=== PATIENT | male | born 1980 | race African-American/Black ===

== ENCOUNTER 2021-05-16 03:11 | Inpatient (IN) | payer MEDICAID ==
[~2021-05-16] VITALS: Ht 190.5 cm; Wt 80.7 kg
[2021-05-16] MEDS ORDERED: ONDANSETRON HCL/PF 4 MG/2 ML VIAL ONE (03:27)
[2021-05-16] MEDS ORDERED: IV NS 0.9% 1,000 ML BAG IV ONE (03:30)
[2021-05-16] MEDS ORDERED: ONDANSETRON HCL/PF 4 MG/2 ML VIAL IVP ONE (03:30)
[2021-05-16 03:39] LABS: BASOPHILS # (AUTO) 0.1 K/uL (0.0-0.2); BASOPHILS % (AUTO) 0.8 % (0.0-2.0); EOSINOPHILS % (AUTO) 0.3 % (0.0-6.0); HEMATOCRIT 35 % (39-51); HEMOGLOBIN 11.4 g/dL (13.5-17.5); LYMPHOCYTES # (AUTO) 1.6 K/uL (0.8-4.8); LYMPHOCYTES % (AUTO) 10.1 % (20.0-44.0); MEAN CORPUSCULAR HGB CONC 33 g/dl (31.0-36.0); MEAN CORPUSCULAR VOLUME 88 fL (80-96); MONOCYTES # (AUTO) 0.9 K/uL (0.1-1.30); MONOCYTES % (AUTO) 5.6 % (2.0-12.0); NEUTROPHILS # (AUTO) 13.5 K/uL (1.8-8.9); NEUTROPHILS % (AUTO) 83.2 % (43.0-81.0); PLATELET COUNT (AUTO) 756 K/uL (150-450); RED BLOOD CELL COUNT(AUTO) 3.94 MIL/uL (4.5-6.0); WHITE BLOOD COUNT (AUTO) 16.2 K/uL (4.3-11.0)
[2021-05-16 03:43] LABS: BILIRUBIN,URINE Negative (NEGATIVE); COLOR,URINE YELLOW (YELLOW); LEUKOCYTE ESTERASE ,URINE Negative (NEGATIVE); NITRITE, URINE Negative (NEGATIVE); PH,URINE 5.5 (5.0-8.0); PROTEIN,URINE 30 mg/dl (NEGATIVE); UGLUCOSE Negative (NEGATIVE)
[2021-05-16] MEDS ORDERED: MAG HYDROX/AL HYDROX/SIMETH 30 ML UDC ONE (03:43)
[2021-05-16] MEDS ORDERED: LIDOCAINE VISCOUS 2% UD 15 ML UDC ONE (03:43)
[2021-05-16 03:52] LABS: CALCIUM, SERUM 8.5 mg/dL (8.5-10.1); CARBON DIOXIDE 25 mmol/L (21-32); CHLORIDE 100 mmol/L (98-107); CREATININE 0.9 mg/dL (0.6-1.3); GLUCOSE 109 mg/dL (74-106); POTASSIUM 3.4 mmol/L (3.5-5.1); SODIUM SERUM 135 mmol/L (136-145); UREA NITROGEN, BLOOD 14 mg/dL (7-18)
[2021-05-16 03:58] LABS: ALANINE AMINOTRANSFERASE 134 U/L (12-78); ALBUMIN 2.5 g/dL (3.4-5.0); ALKALINE PHOSPHATASE 84 U/L (46-116); ASPARTATE AMINOTRANSFERASE 81 U/L (15-37); BILIRUBIN,DIRECT 0.1 mg/dL (0.0-0.2); BILIRUBIN,TOTAL 0.3 mg/dL (0.2-1.0); LIPASE 75 U/L (73-393); TOTAL PROTEIN, SERUM 7.4 g/dL (6.4-8.2)
[2021-05-16] MEDS ORDERED: LIDOCAINE VISCOUS 2% UD 15 ML UDC MM ONE (04:00)
[2021-05-16] MEDS ORDERED: MAG HYDROX/AL HYDROX/SIMETH 30 ML UDC PO ONE (04:00)
--- NOTE | 2021-05-16 04:06 | NUR ---
COVID SWAB COLLECTED AND SENT TO LAB
[2021-05-16] MEDS ORDERED: CT SWABBABLE VALVE TRANS SET 1 EA INFUS.SET MC ONE (04:29)
[2021-05-16] MEDS ORDERED: IV NS 0.9% 250 ML IV ONE (04:29)
[2021-05-16] MEDS ORDERED: IOHEXOL-350 100 ML VIAL IV ONE (04:29)
[2021-05-16] MEDS ORDERED: D5W IV SCH ×3 (04:30→13:00)
[2021-05-16] MEDS ORDERED: AZITHROMYCIN 500 MG in IV D5W 250 ML IV ONE (04:30)
[2021-05-16] MEDS ORDERED: ACETYLCYSTEINE IV SCH ×3 (04:30→13:00)
[2021-05-16] MEDS ORDERED: CEFTRIAXONE 1GM BAG (ER ONLY) 1 GM/50 ML PIGGYBACK IV ONE (04:30)
[2021-05-16] MEDS ORDERED: CEFTRIAXONE 1GM BAG (ER ONLY) 50 ML IV ONE (04:43)
[2021-05-16] MEDS ORDERED: AZITHROMYCIN 500 MG VIAL ONE (04:43)
--- NOTE | 2021-05-16 05:32 | NUR ---
CALLED BALJINDER FOR CT READ
--- NOTE | 2021-05-16 06:00 | NUR ---
CALLED HOUSE [facility]P FOR TELE BED
--- NOTE | 2021-05-16 06:16 | NUR ---
DR YOUNGER ON THE PHONE W/ ALICIA URBINA NP
--- NOTE | 2021-05-16 06:25 | NUR ---
TELE BED: 119-
[2021-05-16] MEDS ORDERED: ZOLPIDEM TARTRATE 5 MG TABLET PO PRN (07:00)
[2021-05-16] MEDS ORDERED: ONDANSETRON HCL/PF 4 MG/2 ML VIAL IVP PRN (07:00)
[2021-05-16] MEDS ORDERED: POTASSIUM CHLORIDE 20 MEQ TAB.PRT.SR PO ONE ×2 (07:00→08:13)
[2021-05-16] MEDS: ENOXAPARIN SODIUM 40 MG/0.4 ML DISP.SYRIN SQ SCH (07:00)
[2021-05-16] MEDS ORDERED: ACETAMINOPHEN 325 MG TABLET PO PRN (07:00)
[2021-05-16] MEDS ORDERED: MAG HYDROX/AL HYDROX/SIMETH 30 ML UDC PO PRN (07:00)
[2021-05-16] MEDS ORDERED: MORPHINE SULFATE INJ 2 MG/ML DISP.SYRIN IV PRN (07:00)
--- NOTE | 2021-05-16 07:12 | NUR ---
CALLED BALJINDER FOR CT READ
--- NOTE | 2021-05-16 07:46 | NUR ---
REPORT GIVEN TO NURSE DANY FROM TELE/HAZEL
[2021-05-16] MEDS ORDERED: PANTOPRAZOLE 40 MG TABLET.DR PO ONE (08:13)
[2021-05-16] MEDS ORDERED: ENOXAPARIN SODIUM 40 MG/0.4 ML DISP.SYRIN SQ ONE (08:13)
[2021-05-16] MEDS: PANTOPRAZOLE 40 MG TABLET.DR PO SCH (08:18)
[2021-05-16 08:31] LABS: BASOPHILS # (AUTO) 0.2 K/uL (0.0-0.2); BASOPHILS % (AUTO) 1.3 % (0.0-2.0); EOSINOPHILS % (AUTO) 0.3 % (0.0-6.0); HEMATOCRIT 36 % (39-51); HEMOGLOBIN 11.7 g/dL (13.5-17.5); LYMPHOCYTES # (AUTO) 1.3 K/uL (0.8-4.8); LYMPHOCYTES % (AUTO) 7.8 % (20.0-44.0); MEAN CORPUSCULAR HGB CONC 33 g/dl (31.0-36.0); MEAN CORPUSCULAR VOLUME 88 fL (80-96); MONOCYTES # (AUTO) 0.7 K/uL (0.1-1.30); MONOCYTES % (AUTO) 4.2 % (2.0-12.0); NEUTROPHILS # (AUTO) 14.1 K/uL (1.8-8.9); NEUTROPHILS % (AUTO) 86.4 % (43.0-81.0); PLATELET COUNT (AUTO) 739 K/uL (150-450); RED BLOOD CELL COUNT(AUTO) 4.08 MIL/uL (4.5-6.0); WHITE BLOOD COUNT (AUTO) 16.4 K/uL (4.3-11.0)
[2021-05-16 08:42] LABS: CALCIUM, SERUM 8.1 mg/dL (8.5-10.1); CREATININE 0.8 mg/dL (0.6-1.3); MAGNESIUM 2.1 mg/dL (1.8-2.4); POTASSIUM 3.5 mmol/L (3.5-5.1)
--- NOTE | 2021-05-16 08:50 | NUR ---
RN NOTES RECEIVED PT IN BED, STABLE ON ROOM AIR. A/O X3-4. PT NOT ANSWERING ADMISSION QUESTIONS. IRRITATED. AMBULATORY WITH STANDBY ASSIST. BELONGINGS CHECKED AND SIGNED. IV ACCESS ON RAC #18 INTACT, PATENT AND FLUSHED. PLACED IN BED. SAFETY MEASURES IN PLACE. BED LOCKED AND IN LOWEST POSITION WITH SIDE RAILS UP X2.
[2021-05-16 09:17] LABS: C-REACTIVE PROTEIN 3.9 mg/dL (0.0-0.9)
[2021-05-16 12:00] VITALS: BP 152/65
[2021-05-16 16:00] VITALS: BP 110/73
--- NOTE | 2021-05-16 19:29 | NUR ---
RN CLOSING NOTES NO SIGNIFICANT CHANGES THROUGHOUT THE SHIFT. ON 2L O2 VIA NC. NO SOB. DENIES PAIN. ALL DUE MEDS GIVEN. NEEDS ATTENDED. SAFETY MEASURES IN PLACE. WILL ENDORSE TO NIGHT RN FOR RAMEZ.
[2021-05-16 20:00] VITALS: BP 116/80
--- NOTE | 2021-05-16 20:15 | NUR ---
RN OPENING NOTES: RECEIVED PATIENT SLEEP IN BED COMFORTABLY, BED IN LOW POSITION, CALL LIGHTS WITHIN REACH, NO COMPLAIN OF PAIN AND DISCOMFORT AT THIS TIME, ON NC 22LPM NO SOB OR ANY RESP DISTRESS OBSERVED, PATIENT IS A/OX3 ABLE TO EXPRESS NEEDS, ON TELE MONITORING SR-97, IV LINE AT RT AC WITH ONGOING D5 1L WITH ACETYLCYSTEINE INFUSING WELL, PATIENT KEPT CLEAN AND DRY, ALL NEEDS MET, WILL CONTINUE TO MONITOR.
[2021-05-17] VITALS: BP 131/68
[2021-05-17 04:00] VITALS: BP 104/70
--- NOTE | 2021-05-17 06:59 | NUR ---
RN NOTES PATIENT REFUSED BLOOD DRAWN OFFERED 2X EXPLAIN THE IMPORTANCE OF PT INR BUT PATIENT STRONGLY REFUSED AND INSTEAD PREPARED AND 1 1/2 FOR THE LAB STAFF TO RETURN ENDORSE TO INCOMING NURSE.
[2021-05-17] MEDS: CEFTRIAXONE 1 G in IV D5W 50 ML IV SCH ×2 (07:00→12:00)
[2021-05-17] MEDS: AZITHROMYCIN 500 MG in IV D5W 250 ML IV SCH ×2 (07:00→12:27)
[2021-05-17] MEDS: ENOXAPARIN SODIUM 40 MG/0.4 ML DISP.SYRIN SQ SCH (07:17)
[2021-05-17] MEDS: PANTOPRAZOLE 40 MG TABLET.DR PO SCH (07:30)
--- NOTE | 2021-05-17 07:37 | NUR ---
RN CLOSING NOTES: PATIENT WAS AWAKE IN BED, ALERT AND ORIENTED X4 NO COMPLAIN OF PAIN AND DISCOMFORT AT THIS TIME, BED IN LOW POSITION, CALL LIGHTS WITHIN REACH, ON TELE MONITORING IV LINE AT RAC #18 WITH ONGOING MUCOMYST IV IN D5W AT 65.25ML/HR INFUSING WELL, PATIENT ON BR WITH STAND BY ASSIST, ON 02 INHALATION AT 2LPM,NO SOB WAS OBSERVED,PATIENT KEPT CLEAN AND DRY, ALL NEEDS MET, ENDORSE TO INCOMING SHIFT.
--- NOTE | 2021-05-17 07:46 | NUR ---
RN OPENING NOTE PATIENT IN BED, SLEEPING. ON 2L O2 NC WITH NO SIGNS OF LABORED BREATHING AT THIS TIME. R AC 18G PIV IN PLACE RUNNING MUCOMYST AT 65.25 CC/HR. BED LOCKED AND IN LOWEST POSITION, 3 SIDE RAILS UP, CALL LIGHT WITHIN REACH. ALL SAFETY MEASURES IMPLEMENTED
--- NOTE | 2021-05-17 08:21 | NUR ---
RN NOTE PATIENT REFUSED ALL MEDICATIONS DESPITE EXPLANATION OF THE BENEFITS AND NEED FOR IT DUE TO ELEVATED WBCS. WILL CONTINUE TO MONITOR.
--- NOTE | 2021-05-17 08:37 | NUR ---
RN NOTES DR. NEL GARZA NOTIFIED ABOUT PATIENT REFUSED ALL IV ANTIBIOTICS AND AM MEDS DESPITE EXPLAINING THE RISK AND BENEFITS.
--- NOTE | 2021-05-17 10:00 | NUR ---
RN NOTES PATIENT CONTINUE TO REFUSE ALL MEDICATIONS, LABORATORIES AND TREATMENTS.
--- NOTE | 2021-05-17 10:16 | NUR ---
RN NOTE PATIENT REFUSES VITAL SIGNS AND BLOOD DRAW. WILL CONTINUE TO MONITOR.
[2021-05-17 12:38] LABS: BASOPHILS # (AUTO) 0.1 K/uL (0.0-0.2); BASOPHILS % (AUTO) 0.6 % (0.0-2.0); EOSINOPHILS % (AUTO) 0.5 % (0.0-6.0); HEMATOCRIT 36 % (39-51); HEMOGLOBIN 11.8 g/dL (13.5-17.5); LYMPHOCYTES # (AUTO) 1.2 K/uL (0.8-4.8); LYMPHOCYTES % (AUTO) 9.2 % (20.0-44.0); MEAN CORPUSCULAR HGB CONC 33 g/dl (31.0-36.0); MEAN CORPUSCULAR VOLUME 87 fL (80-96); MONOCYTES # (AUTO) 0.7 K/uL (0.1-1.30); MONOCYTES % (AUTO) 5.5 % (2.0-12.0); NEUTROPHILS % (AUTO) 84.2 % (43.0-81.0); PLATELET COUNT (AUTO) 725 K/uL (150-450); RED BLOOD CELL COUNT(AUTO) 4.09 MIL/uL (4.5-6.0)
[2021-05-17 12:49] LABS: CALCIUM, SERUM 8.2 mg/dL (8.5-10.1); CREATININE 0.9 mg/dL (0.6-1.3); POTASSIUM 4.4 mmol/L (3.5-5.1)
[2021-05-17 12:54] LABS: IRON, SERUM 11 ug/dl (50-175); TOTAL IRON BINDING CAPACITY 177 ug/dl (250-450)
[2021-05-17 13:02] LABS: BILIRUBIN,TOTAL 0.3 mg/dL (0.2-1.0); PHOSPHORUS 2.5 mg/dL (2.5-4.9); TOTAL PROTEIN, SERUM 6.4 g/dL (6.4-8.2)
[2021-05-17 13:53] LABS: FERRITIN 874 ng/mL (8-388)
--- NOTE | 2021-05-17 14:25 | NUR ---
"SS Consult: SS consult requested for possible homelessness, drug abuse and accidental OD on Tylenol due to abdominal pain. The pt. is a 40 year old Black male in HAZEL on droplet isolation. SW wore proper PPE. SW met pt. bedside and the pt. was sleeping and very drowsy. Pt. nodded yes when asked if he is experiencing homelessness and nodded yes when asked if he has family. PETRONA explained to pt. that SW can assist pt. with discharge plan, referrals, tp senior care or Drug rehab centers. However, pt. did not respond. Pt. only verbalized his last name after continuous prompting. SW unable to gather more information. Pt.'s tox report shows pt. used Amphetamine and Cannabinoids. PETRONA will place homeless waiver and resources in pt.'s chart to be given to pt. upon discharge. PETRONA discussed with Funmilayo AUSTIN and nurseKailey. Addendum: 05/17/21 at 1451 by JUDIT RUSS Year-round shelters: [facility] [address] [place] [address] ; [facility] [place] [address] [place] [address]; [facility] Aqqmyca[address] [facility] [address] Winter Shelters: Jean Paul Brown Provider: [facility] [place] Address: [address], [address] # of Beds: 47 Population Served: [facility] 6 | [facility] Sophia Eunice Brown Provider: [facility] Address: [address] [place] [address], [address] # of Beds: 66 Population Served: [facility] [place] Provider: [facility] Address: [address] [facility], [address] # of Beds: 56 Population Served: [facility] Brown Provider: [facility] Address: [address] [facility], [address] # of Beds: 49 Population Served: [facility] 8 | [place] Provider: [facility] Address: [address] [facility]. [place], [address] # of Beds: 37 Population Served: [facility] Hy[facility]: [facility] [address] [facility] ; [facility] [address] [facility] ; [facility] [address] [facility] . Food Resources: [facility] at [facility]- [address] [facility]; Meet Each Need with Dignity ([facility]) [address] [facility]; [facility] Food Pantry [address] [facility]; [facility] [address] [facility]. Mental Health resources provided: [facility] [address] [place] [address] ; [facility] [address] ParadiseCount[address] include 234 beds at the [facility] [address], [place] [address] ; [facility] [address] [place] [address] ; [facility] [address] [place], [place] [phone] Healthcare Clinics: [facility] [address] [facility], [address] [place]. [place] ; [facility] [address] [facility] [facility] [address] [place] [address]; [facility] [address] [place] [address] [phone] Counseling--Outpatient [facility] [address], [address] [place], [place] [address] (Specializes in in-depth psychotherapy for emotional distress: anxiety, depression, interpersonal conflicts, life transitions, childhood abuse) [facility] [address] [place] [address] (Assist with solving problem marital difficulties, separation & divorce, aging parents, & grief, chronic & terminal illness) [facility] [address] [place] [address] (Deal with loss & grief, anxiety, marital difficulties) Homebound/Mental Health Services [address] [facility] [address] [place] [address] (Provide in-home mental services to people who are incapable of leaving their homes) [facility] the Elderly Senior Service/Resource Center [address] [place] [address] [facility] [address] [place] [address] PSYCHIATRIC OUTPATIENT SERVICES [facility] Partial Hospitalization and Intensive Outpatient Program (Managed Care and [place] Only)[address] [address] [facility] [phone] [facility] Partial Hospitalization and Outpatient [id number] L[address] [facility]. [address] [place], [place] [phone] [facility] Mental Health [place] Hak[address] [facility] [address] [place], [place] [phone] [facility] Partial Hospitalization and Outpatient [id number] [place], [phone] Substance Abuse resources provided included: [facility] Substance Abuse Self-Helpline (SAS) ; [facility] [address] [facility]. [place]. [place] [phone] ; [facility] [address] [facility] [address] ; [facility] Rehabilitation Program [address] [place] [address] ; [facility] [address] [facility] [address] ; [facility] Treatment [facility] [address] [facility] [phone] ; [employer] [address] [facility] [phone] ; [facility] Substance Abuse Helpline([facility] ; [facility] ; [facility]; [facility]; [facility] [place]; [facility] Narayan Calles; [facility] [place]; [facility] [place]; [facility]; [facility]. [place]; Alcoholics Anonymous -SFV; Om-Uduy-Jtqfmjc ; Marijuana Anonymous -SFV; Narcotics Anonymous www.na.org;"
[2021-05-17] MEDS: ASPIRIN 81 MG TAB.CHEW PO SCH (14:57)
--- NOTE | 2021-05-17 15:08 | NUR ---
RN NOTE CONSENT FOR MRI OF PELVIS AND ABDOMEN WITH CONTRACT SIGNED AT 1450. MRI UNABLE TO BE PERFORMED AT THIS TIME DUE TO PENDING COVID PCR AND TB TEST.
--- NOTE | 2021-05-17 16:35 | NUR ---
RN NOTES RECEIVED A CALL FROM POISON CONTROL CENTER. LFT RESULTS RELAYED AND ACETAMINOPHEN LEVEL. PER THEIR RECOMMENDATION - TO REPEAT 3 DOSES OF ACETYLCYSTEINE - DOSE #1 150MG/KG OVER 1 HOURS, DOSE #2 50 MG/KG OVER 4 HOURS AND DOSE #3 100MG/KG OVER 16 HOURS THEN REPEAT LFT ON 8TH HOUR AND 15TH HOUR WHILE ON DOSE #3. DR. NEL GARZA NOTIFIED, AND PER HIM, HE DISAGREE WITH THE RECOMMENDATIONS. INSTRUCTION GIVEN TO STOP ACEDOTE WHEN COMPLETE.
[2021-05-17] MEDS: FERROUS SULFATE (325 MG) 325 MG/TAB TABLET PO SCH (16:40)
--- NOTE | 2021-05-17 18:36 | NUR ---
RN CLOSING NOTE PATIENT IN BED, SLEEPING. ON ROOM AIR WITH NO SIGNS OF LABORED BREATHING AT THIS TIME. L FOREARM PIV IN PLACE. BED LOCKED AND IN LOWEST POSITION, CALL LIGHT WITHIN REACH, 3 SIDE RAILS UP, ALL SAFETY MEASURES IN PLACE. WILL ENDORSE TO BROWN STOCK WASHER NURSE.
--- NOTE | 2021-05-17 19:30 | NUR ---
RN NOTE RECEIVED PATIENT ON ISOLATION FOR R/O COVID. PATIENT IN BED. A/OX3. TOLERATING ROOM AIR. RESPIRATIONS ARE EVEN AND UNLABORED. NO S/S SOB NOTED. NO C/O PAIN AT THIS TIME. IN NO APPARENT DISTRESS. IV ACCESS IN LAC PATENT AND SALINE LOCKED. BED IS LOW AND LOCKED, HOB ELEVATED IN SEMI FOWLERS, SIDE RIAL SUP X2, LUIS MIGUEL LIGHT WITHIN REACH.
[2021-05-17 20:00] VITALS: BP 102/73
--- NOTE | 2021-05-17 21:30 | NUR ---
RN NOTE INFORMED RT DEPARTMENT THAT PATIENT NEEDS SPUTUM CULTURES COLLECTED.
--- NOTE | 2021-05-17 23:20 | NUR ---
RN NOTE POISON CONTROL CALLED. SPOKE WITH JIMMY PHARMACIST AT POISON CONTROL. ASKED IF WE RESTARTED ANOTHER TRAIL OF MUCOMYST. INFORMED HIM THAT PRIOR SHIFT RN SPOKE WITH DR. NEL GARZA AND HE DID NOT WANT TO RESTART THE MUCOMYST DOSES D/T TYLENOL LEVEL BEING LOWER. JIMMY INFORMED ME THAT HE CONTINUES TO RECOMMEND GETTING LFTS AND COAGS REDRAWN D/T LFTS BEING ELEVATED AND PATIENT CAN STILL BE EXPERIENCING LIVER TOXICITY DESPITE TYLENOL BEING LOW. INFORMED PATIENT SAFETY TECH ALICIA URBINA NP. ALSO PROVIDED ALICIA URBINA WITH POISON CONTROL NUMBER [phone].
--- NOTE | 2021-05-18 00:27 | NUR ---
RN NOTE OUTDOOR EMERGENCY CARE TECHNICIAN JOE GOING TO MIX MEDICATION. OUTDOOR EMERGENCY CARE TECHNICIAN ASKED RN NEWSCAST PRODUCER BRIAN IF WE HAVE A HIGHER DOSE D/T WILL NEED 17 MED CUPS IF USED DOSE PROVIDED IN [place]. AWAITING MEDICATION FORMULATION.
[2021-05-18] MEDS ORDERED: ACETYLCYSTEINE IV 6,000 MG/30 ML VIAL IV ONE ×2 (00:31→01:16)
[2021-05-18] MEDS ORDERED: D5W IV SCH ×3 (01:00→05:00)
[2021-05-18] MEDS ORDERED: ACETYLCYSTEINE IV SCH ×3 (01:00→05:00)
[2021-05-18 01:04] LABS: ALBUMIN 1.8 g/dL (3.4-5.0); BILIRUBIN,DIRECT 0.1 mg/dL (0.0-0.2); BILIRUBIN,TOTAL 0.3 mg/dL (0.2-1.0); TOTAL PROTEIN, SERUM 5.9 g/dL (6.4-8.2)
--- NOTE | 2021-05-18 01:30 | NUR ---
RN NOTE INFORMED LAB THEY DOCUMENTED THE WRONG TIME FOR A BLOOD DRAW RECENTLY COLLECTED. LFTS AND PT/INR DRAWN 05/18/21 0004 BUT DOCUMENTED ON 05/17/21 0004. PLANE TENDER WAS ABLE TO CHANGE PT/IMR BUT NOT THE LFTS.
--- NOTE | 2021-05-18 01:40 | NUR ---
RN NOTE INFORMED PATIENT THAT A STOOL SAMPLE NEEDS TO BE COLLECTED. PLACED HAT IN TOILET. ASKED PATIENT TO PLEASE PRESS CALL LIGHT ONCE HE MAKES STOOL SPECIMEN. ALSO ASKED IF PATIENT WANTED TO COMPLETE THE MRI QUESTIONAIRE. PATIENT STATED NO. PATIENT ALSO REFUSED MUCOMYST IV.
--- NOTE | 2021-05-18 01:59 | NUR ---
RN NOTE PATIENT IS REFUSING MUCOMYST. STATED THAT HIS IV WAS HURTING LAST TIME. I OFFERED TO PLACE A NEW IV. PATIENT REFUSED. EDUCATED PATIENT ON WHY HE NEEDED THIS MEDICATION. PATIENT STATED HE RATHER . BUT ALSO STATED HE WILL MAYBE LATER OR IN THE MORNING. PATIENT FOCUS WAS TO GO TO SLEEP. CANDY CUTTER HAND ALICIA URBINA NP NOTIFIED. WILL RETRY BEFORE SHIFT CHANGE.
[2021-05-18 04:00] VITALS: BP 125/84
[2021-05-18 06:05] LABS: BASOPHILS # (AUTO) 0.1 K/uL (0.0-0.2); BASOPHILS % (AUTO) 0.5 % (0.0-2.0); EOSINOPHILS % (AUTO) 1.6 % (0.0-6.0); HEMATOCRIT 33 % (39-51); HEMOGLOBIN 11.1 g/dL (13.5-17.5); LYMPHOCYTES # (AUTO) 1.7 K/uL (0.8-4.8); LYMPHOCYTES % (AUTO) 15.1 % (20.0-44.0); MEAN CORPUSCULAR HGB CONC 33 g/dl (31.0-36.0); MEAN CORPUSCULAR VOLUME 87 fL (80-96); MONOCYTES # (AUTO) 0.5 K/uL (0.1-1.30); MONOCYTES % (AUTO) 4.3 % (2.0-12.0); NEUTROPHILS # (AUTO) 8.9 K/uL (1.8-8.9); NEUTROPHILS % (AUTO) 78.5 % (43.0-81.0); PLATELET COUNT (AUTO) 671 K/uL (150-450); RED BLOOD CELL COUNT(AUTO) 3.82 MIL/uL (4.5-6.0); WHITE BLOOD COUNT (AUTO) 11.3 K/uL (4.3-11.0)
--- NOTE | 2021-05-18 06:22 | NUR ---
RN NOTE PATIENT CONTINUES TO REFUSE IV CONNECTION TO MUCOMYST. ASKED PATIENT IF HE IS WILLING TO BE CONNECTED NEXT SHIFT POSSIBLY AFTER BREAKFAST PATIENT SHOOK HIS HEAD YES. WILL ENDORSE TO NEXT SHIFT. PATIENT DID NOT PRODUCE A STOOL SPECIMEN. Addendum: 05/18/21 at 0643 by JEANNINE JENSEN RN INFORMED SKIDDER OPERATOR ALICIA URBINA NP
[2021-05-18 06:24] LABS: BILIRUBIN,DIRECT 0.1 mg/dL (0.0-0.2); BILIRUBIN,TOTAL 0.2 mg/dL (0.2-1.0); TOTAL PROTEIN, SERUM 6.4 g/dL (6.4-8.2)
[2021-05-18 06:45] LABS: CALCIUM, SERUM 8.2 mg/dL (8.5-10.1); CREATININE 0.8 mg/dL (0.6-1.3); MAGNESIUM 2.1 mg/dL (1.8-2.4); PHOSPHORUS 3.2 mg/dL (2.5-4.9); POTASSIUM 4.3 mmol/L (3.5-5.1)
--- NOTE | 2021-05-18 06:45 | NUR ---
RN NOTE ISOLATION FOR R/O COVID AND R/O TB. RESTING IN BED. A/OX3. TOLERATING ROOM AIR. NO RESP DISTRESS. NO C/O PAIN. NO DISTRESS. LAC SALINE LOCKED. PATIENT IS NONCOMPLIANT THROUGHOUT THE NIGHT ND REFUSED THE MUCOMYST IV CONNECTION RECOMMENDED BY POISON CONTROL. PATIENT EDUCATED. A AND P MECHANIC ALICIA URBINA INFORMED. PATIENT AGREED TO BE CONNECTED AFTER BREAKFAST. RT ALREADY INFORMED OF SPUTUM CULTURE TO BE COLLECTED. NO STOOL SPECIMEN COLLECTED THERE WAS NO BM. WILL ENDORSE NEXT SHIFT TO COMPLETE MRI CHECKLIST. BED REMAINS LOW AND LOCKED, HOB ELEVATED IN SEMI FOWLERS, SIDE RIAL SUP X2, LUIS MIGUEL LIGHT WITHIN REACH.
[2021-05-18] MEDS: CEFTRIAXONE 1 G in IV D5W 50 ML IV SCH ×2 (07:00→09:48)
--- NOTE | 2021-05-18 07:10 | NUR ---
MS RN NOTE RECEIVED PATIENT ON ISOLATION FOR R/O COVID/ PTB. PATIENT IN BED A/OX3-4. PATIENT ON ROOM AIR WITH EVEN AND UNLABORED RESPIRATION. NO S/S SOB NOTED. NO C/O PAIN OR DISCOMFORT AT THIS TIME. IN NO APPARENT DISTRESS. IV ACCESS IN LAC PATENT AND SALINE LOCKED. PATIENT APPARENTYLY REFUSED MUCOMYST IV ORDERED AND WANTS TO START IT AFTER HIS BREAKFAST. PATIENT HEALTH TEACHING REGARDING IMPORTANCE OF MEDICATION AND IV ACCESS. VERBALIZED UNDERSTANDING. SAFETY MEASURES ENSURED WITH BED ON LOWERST AND LOCKED POSITION. SIDERAIL RAISED AND CALL LIGHT AND TABLE WITHIN REACH AT ALL TIMES. WILL CONTINUE TO MONITOR PATIENT.
[2021-05-18 08:00] VITALS: BP 96/63
[2021-05-18 08:06] LABS: IMMUNOGLOBULIN A, SERUM 221 mg/dL (90-386); IMMUNOGLOBULIN G, SERUM 1417 mg/dL (603-1613); IMMUNOGLOBULIN M, SERUM 123 mg/dL (20-172)
[2021-05-18] MEDS: AZITHROMYCIN 500 MG in IV D5W 250 ML IV SCH (08:16)
[2021-05-18] MEDS: FERROUS SULFATE (325 MG) 325 MG/TAB TABLET PO SCH ×2 (08:17→18:00)
[2021-05-18] MEDS: ASPIRIN 81 MG TAB.CHEW PO SCH (08:17)
[2021-05-18] MEDS: PANTOPRAZOLE 40 MG TABLET.DR PO SCH (08:17)
--- NOTE | 2021-05-18 08:45 | NUR ---
MS RN NOTE PATIENT'S IV ACCESS IS INFILTRATED. PATIENT REFUSES IV INSERTION AT THIS TIME. PATIENT SAID HE WILL CALL THIS NURSE ONCE HE IS READY TO HAVE IT INSERTED. WILL CONTINUE TO MONITOR PATIENT.
--- NOTE | 2021-05-18 09:03 | NUR ---
sputum induction. 1 of 3 sputum collected spontaneously for AFB.
[2021-05-18] MEDS: ENOXAPARIN SODIUM 40 MG/0.4 ML DISP.SYRIN SQ SCH (09:47)
--- NOTE | 2021-05-18 12:30 | NUR ---
MS RN NOTE PATIENT IS STILL REFUSING IV INSERTION, UNABLE TO GIVE IV MEDICATIONS ORDERED. DR. GARZA NOTIFIED.
--- NOTE | 2021-05-18 15:12 | NUR ---
MS RN NOTE PATIENT STILL REFUSED IV INSERTION AFTER OFFERING SEVERAL TIMES, DESPITE EXPLANATION. PATIENT VERBALIZED UNDERSTANDING OF REPERCUSSIONS OF ACTION. WILL CONTINUE TO MONITOR PATIENT.
[2021-05-18 16:00] VITALS: BP 105/66
[2021-05-18] MEDS: ACETAMINOPHEN 325 MG TABLET PO PRN (18:31)
--- NOTE | 2021-05-18 18:56 | NUR ---
MS RN NOTE PATIENT ON ISOLATION FOR R/O COVID/ PTB. PATIENT IN BED A/OX3-4. PATIENT ON ROOM AIR WITH EVEN AND UNLABORED RESPIRATION. NO S/S SOB NOTED. NO C/O PAIN OR DISCOMFORT AT THIS TIME. IN NO APPARENT DISTRESS. IV ACCESS IN LAC PATENT AND SALINE LOCKED. PATIENT APPARENTYLY REFUSED MUCOMYST IV ORDERED AND WANTS TO START IT AFTER HIS BREAKFAST. PATIENT HEALTH TEACHING REGARDING IMPORTANCE OF MEDICATION AND IV ACCESS. VERBALIZED UNDERSTANDING. SAFETY MEASURES ENSURED WITH BED ON LOWERST AND LOCKED POSITION. SIDERAIL RAISED AND CALL LIGHT AND TABLE WITHIN REACH AT ALL TIMES. WILL ENDORSE PATIENT FOR CONTINUITY OF CARE
--- NOTE | 2021-05-18 19:05 | NUR ---
RN NOTES: RECEIVED AWAKE ON BED, HE IS LYING ON PRONE POSITION, A/OX3 CONTACT/DROPLET PRECAUTION OBSERVED, ,RN GREETED HIM HE DID NOT EVEN GIVE EYE CONTACT, ORIENTED TO UNIT AND STAFF, ON ROOM AIR, NO SOB OR ANY SIGN OF RESPIRATORY DISCOMFORT, NO PAIN AT THIS TIME, PER ENDORSEMENT HE NEEDS NEW IV CANNULA, PREVIOUS SITE NEEDS TO BE CAHNGE AND HE KEEP TELLING IN THE MORNING LATER, EXPLAINED TO HIM BY RN IF HE IS READY FOR IV REINSERTION JUST LET ME KNOW, HE SAID "NO, IM NOT". -FOR STOOL OB, FRO SPUTUM AFB COLLECTION IN THE MORNING AT O300, WILL NOTIFY RT. -STILL PENDING MRI OF ABDOMEN AND PELVIS AWAITING FOR PCR/TB RESULT ONCE RESULT OBTAIN. -FALL,SAFETY AND ASPIRATION PRECAUTION OBSERVED, KEPT CALL LIGHT WITHIN REACH.
[2021-05-18 20:00] VITALS: BP 110/66
--- NOTE | 2021-05-18 20:44 | NUR ---
RN NOTES: --AROUND 2014 HE ASKED FOR SOME SNACKS, GIVEN #2 TETRA PACK OF MILK AND SANDWICH, CALLS AND NEEDS ATTENDED, KEPT CALL LIGHT WITHIN EASY REACH.
--- NOTE | 2021-05-18 21:25 | NUR ---
RN NOTES: -HE ASKED FOR ANOTHER MILK, GIVEN. -RN SPOKE WITH HIM AND ASKED HIM IF WHAT WILL BE HIS POLST IN CASE OF EMERGENCY. -HE SAID HE WANTS TO BE RESUSCITATED, HE WILL BE FULL CODE. RN/CN NOTIFIED.
--- NOTE | 2021-05-18 21:54 | NUR ---
RN NOTES: --AT AROUND 2139 RECEIVED A PHONE CALL FROM POISON CONTROL, SPOKE WITH IRIS, SHE JUST WANT TO F/U IF IV ACETYLCYSTEINE WAS GIVEN, PER MORNING ENDORSEMENT THEY TRIED SEVERAL TIMES TO OFFER AND ASKED HIM FOR IV REINSERTION SO THAT IV MEDICATION WILL BE GIVEN BUT HE JUST KEEP ON DELAYING AND REFUSING, WAS NOTIFIED IN THE MORNING AND SANDOVAL WAS AWARE IN THE INFECTION CONTROL. -IRIS SUGGEST IF WE CAN TRY TO OFFER AND GIVE HIM THE ORAL MEDICATION IF HE AGREE: 1)MUCOMYST 140 MG/KG P.O. LOADING DOSE--MIX WITH SODA/WITH ICE, COVER AND USE STRAW 2)MUCOMYST 70 MG/KG Q 4HOURS P.O. 3)DO LIVER FUNCTION TEST IF HE AGREE FOR ORAL MEDS --SHE INSTRUCT TO ASKED THE PATIENT FIRST IF HE AGREE, WE CAN NOTIFY AND GET ORDER FROM THE DOCTOR IN CHARGE. --IMMEDIATELY AFTER THE CALL RN WENT TO PATIENT AND EXPLAINED TO HIM, POISON CONTROL IS OFFERING AN ORAL MEDICATION INSTEAD OF IV, HE CAN TAKE IT ORALLY, I EXPLAINED TO HIM EVERYTHING IRIS HAVE INSTRUCTED ME, HE LOOKS VERY SLEEPY AND NOT INTERESTED TO GIVE AN ACCURATE ANSWER HE JUST SAY "MMM", THEN RN REPEAT IT AGAIN, HE SAID "NOT NOW, MAYBE IN THE MORNING, I WANT TO SLEEP'. -NOTIFIED RN/CN, WE WILL F/U AGAIN IN THE MORNING IF HE AGREE TO TAKE ORAL MEDICINE. -PATIENT WENT BACK TO SLEEP.
--- NOTE | 2021-05-18 22:08 | NUR ---
RN NOTES: F/U WITH RT/BRENDON, THEY ARE AWARE FOR SPUTUM COLLECTION IN THE MORNING.
--- NOTE | 2021-05-18 23:04 | NUR ---
RN NOTES: --AT 1999 AND 2099 RN CAME BACK AND ASKED HIM IF WE CAN CHANGE HIS IV CANNULA, NEED TO RECITE, HE REFUSED.HE SAID "TOMORROW'.
[2021-05-19 02:03] VITALS: BP 112/70
--- NOTE | 2021-05-19 02:23 | NUR ---
RN NOTES: AWAKE IN BETWEEN, ASKED FOR JUICE, GIVEN, NOTED WITH INTERMITTENT COUGH, ASKED IF HE HAS ANY RESPIRATORY DISCOMFORT?HE SAID "IM OK". INSTRUCT TO CALL IF HE NEED ANY ASSISTANCE, OFFERED TO CHANGE HIS BED, HE SAID "LATER".KEPT CALL LIGHT WITHIN EASY REACH.
[2021-05-19 04:00] VITALS: BP 115/73
--- NOTE | 2021-05-19 04:14 | NUR ---
RN NOTES: -RT CAME FOR SPUTUM COLLECTION, HE SAID HE WILL GIVE THE SPECIMEN LATER, HE WANTS TO SLEEP.RT EXPLAINED AND GIVEN INSTRUCTION, HE WILL BE BACK IN 1 HOUR. -ASKING FOR CRANBERRY JUICE, GIVEN.
--- NOTE | 2021-05-19 05:17 | NUR ---
RN NOTES: --HE REFUSED FOR BLOOD EXTRACTION, UNTIL NOW HE DID NOT GIVE SPUTUM SPECIMEN. AIRPORT ATTENDANT SAID SOMEONE WILL COME BACK AGAIN LATER. --RE-WEIGH ITS 178 LBS. Addendum: 05/19/21 at 0551 by DIMA HANCOCK RN MAKE CORRECTION: --WRONG ENTRY OF WEIGHT IT IS 182 NOT 178. --PATIENT WAS WEIGH 3X BY 3 NURSES.
--- NOTE | 2021-05-19 06:15 | NUR ---
Pt refusing to spit for sputum specimen. Pt was asked @0400 and @0610. Pt said he wants to keep sleeping. Pt claims he will do it at a later time. RN aware.
--- NOTE | 2021-05-19 06:24 | NUR ---
RN NOTES: --AWAKEN AND EXPLAINED TO HIM, RN NEED TO REINSERT HIS IV,HE IS DUE FOR 2 IV ANTIBIOTIC THIS MORNING, CEFTRIAXONE 1 GRAM AND AZITHROMAX 500 MG, THE OLD ONE IS NOT WORKING, HE DID NOT ALLOW TO REMOVE. --RN PREPARED ALL THE MATERIALS NEEDED FOR IV CANNULATION AND SHOWED TO HIM HE FIRMLY SAY "NO",HE SAID "LATER", THEN RN EXPLAINED TO HIM IF I CAN GIVE HER LOVENOX 40 SQ INJECTION FOR DVT, HE SAID "I DONT WANT ANY INJECTION NOW" THEN HE STARTED TO RAISE HIS VOICE, HE FIRMLY SAY "LATER", THEN HE TURN TOWARDS THE OPPOSITE DIRECTION OF HIS BED AND COVER HIMSELF WITH HIS BLANKET. --RN/CN NOTIFIED OF PATIENT REFUSAL, WILL ENDORSED TO NEXT SHIFT TO TRY LATER AND TO F/U IF HE WILL AGREE FOR ORAL MEDICATION-MUCOMYST. TO F/U ALSO BLOOD EXTRACTION. --STILL ASLEEP, FALL AND SAFETY PRECAUTION OBSERVED.
[2021-05-19] MEDS: AZITHROMYCIN 500 MG in IV D5W 250 ML IV SCH ×2 (07:00→09:12)
[2021-05-19] MEDS: ENOXAPARIN SODIUM 40 MG/0.4 ML DISP.SYRIN SQ SCH ×2 (07:00→09:20)
[2021-05-19] MEDS: CEFTRIAXONE 1 G in IV D5W 50 ML IV SCH ×2 (07:00→09:12)
--- NOTE | 2021-05-19 07:30 | NUR ---
RT NOTE PT INSTRUCTED TO SPIT SPUTUM SPECIMEN INTO STERILE CUP. YONG URIBE.
--- NOTE | 2021-05-19 07:33 | NUR ---
Patient seen comfortably lying in bed, no SOB, no apparent distress noted, breathing even and unlabored, denies any pain or discomfort at this time. Call light left within reach, safety precautions in place, brakes locked, side rails up X 2, will monitor closely for any changes.
[2021-05-19 08:00] VITALS: BP 109/82
[2021-05-19 09:08] LABS: BASOPHILS # (AUTO) 0.1 K/uL (0.0-0.2); BASOPHILS % (AUTO) 0.9 % (0.0-2.0); EOSINOPHILS % (AUTO) 1.9 % (0.0-6.0); HEMATOCRIT 33 % (39-51); HEMOGLOBIN 10.8 g/dL (13.5-17.5); LYMPHOCYTES # (AUTO) 1.5 K/uL (0.8-4.8); MEAN CORPUSCULAR HGB CONC 33 g/dl (31.0-36.0); MEAN CORPUSCULAR VOLUME 87 fL (80-96); MONOCYTES # (AUTO) 0.4 K/uL (0.1-1.30); MONOCYTES % (AUTO) 3.3 % (2.0-12.0); NEUTROPHILS # (AUTO) 10.2 K/uL (1.8-8.9); NEUTROPHILS % (AUTO) 81.9 % (43.0-81.0); PLATELET COUNT (AUTO) 593 K/uL (150-450); RED BLOOD CELL COUNT(AUTO) 3.74 MIL/uL (4.5-6.0); WHITE BLOOD COUNT (AUTO) 12.5 K/uL (4.3-11.0)
[2021-05-19] MEDS: PANTOPRAZOLE 40 MG TABLET.DR PO SCH ×2 (09:10→09:35)
[2021-05-19] MEDS: FERROUS SULFATE (325 MG) 325 MG/TAB TABLET PO SCH ×3 (09:10→16:16)
[2021-05-19] MEDS: ASPIRIN 81 MG TAB.CHEW PO SCH ×2 (09:10→09:35)
[2021-05-19 09:37] LABS: CALCIUM, SERUM 8.1 mg/dL (8.5-10.1); CREATININE 0.9 mg/dL (0.6-1.3); MAGNESIUM 1.9 mg/dL (1.8-2.4); PHOSPHORUS 3.5 mg/dL (2.5-4.9); POTASSIUM 3.9 mmol/L (3.5-5.1)
--- NOTE | 2021-05-19 09:54 | NUR ---
Patient needs a new IV line per endorsement form previous shift. Went to patient's room with the equipment needed for IV cannulation, explained the procedure to the patient, explained why he needs a peripheral IV libne, showed the IV ATB (Rocephin and Zithromax)that is ordered for him, per patient he does not want to be poked and have an IV line, explained risks and benefits thrice, still refused, patient AO X 3-4 and is non compliant per endorsement, MD made aware of the situation. Patient also preferred not to remove his old non functioning IV peripheral line line, explained risks and benefits thrice, still refused. Patient took his PO meds, tolerated well. Explained to the patient regarding a recommendation of a medication from poison control, explained to patient regarding the mechanism of action of Mucomyst and how it can help with his current condition, per patient he does not want it and will not take it, explained risks and benefits thrice, still refused. Patient also refused his Lovenox subcutaneous injection, explained risks and benefits thrice, still refused. made aware of the situation.
--- NOTE | 2021-05-19 11:30 | NUR ---
Received a call from poison control, spoke to Kevin [phone], gave update regarding patient, was also informed that patient still refuses for IV peripheral line insertion, and refuses IV or PO mucomyst, explained risks and beneftits to patient thrice, still refused, poison control verbalized understanding and gratitude.
--- NOTE | 2021-05-19 15:12 | NUR ---
SPUTUM INDUCTION 2 of 3 sputum collected spontaneously for AFB.
[2021-05-19 16:00] VITALS: BP 120/75
[2021-05-19] MEDS: GUAIFENESIN LA 600 MG TABLET.SA PO SCH ×2 (18:39→21:54)
[2021-05-19] MEDS: OLANZAPINE 5 MG TABLET PO SCH (18:39)
--- NOTE | 2021-05-19 18:44 | NUR ---
RN CLOSING NOTES Patient lying in bed, AO X 3-4, able to make needs known, can follow simple commands, has episodes of being non-compliant with plan of care. Respirations even and unlabored, no SOB, denies any pain or discomfort at this time, remained afebrile, no apparent distress noted, no dizziness, no palpitations noted at this time. Patient still preferred not to have his nonfunctioning IV peripheral line on his left ac removed, and also still refusing for a new IV peripheral line insertion, explained risks and benefits thrice, still refused, MD aware. All needs attended, kept clean and dry, safety precautions in place, brakes locked, side rails up X 2, call light left within reach, will endorse to next shift for continuity of care.
--- NOTE | 2021-05-19 22:00 | NUR ---
RN NOTE PATIENT NOTED WITH NO IV ACCESS. EXPLAINED TO THE PATIENT THE NEED FOR AN IV ACCESS DUE TO IV ATB THERAPY. PATIENT STATES HE DOES NOT WANT AND NEED IT. EXPLAINED THE RISK AND BENEFITS TO HIM 3X. PATIENT PERSISTENTLY REFUSING.
[2021-05-20 04:00] VITALS: BP 123/86
[2021-05-20 06:58] LABS: BASOPHILS # (AUTO) 0.1 K/uL (0.0-0.2); BASOPHILS % (AUTO) 1.1 % (0.0-2.0); EOSINOPHILS % (AUTO) 2.6 % (0.0-6.0); HEMATOCRIT 32 % (39-51); HEMOGLOBIN 10.7 g/dL (13.5-17.5); LYMPHOCYTES # (AUTO) 1.3 K/uL (0.8-4.8); LYMPHOCYTES % (AUTO) 14.9 % (20.0-44.0); MEAN CORPUSCULAR HGB CONC 34 g/dl (31.0-36.0); MEAN CORPUSCULAR VOLUME 87 fL (80-96); MONOCYTES # (AUTO) 0.8 K/uL (0.1-1.30); MONOCYTES % (AUTO) 8.8 % (2.0-12.0); NEUTROPHILS # (AUTO) 6.4 K/uL (1.8-8.9); NEUTROPHILS % (AUTO) 72.6 % (43.0-81.0); PLATELET COUNT (AUTO) 544 K/uL (150-450); WHITE BLOOD COUNT (AUTO) 8.7 K/uL (4.3-11.0)
[2021-05-20] MEDS: ENOXAPARIN SODIUM 40 MG/0.4 ML DISP.SYRIN SQ SCH (07:00)
[2021-05-20] MEDS: CEFTRIAXONE 1 G in IV D5W 50 ML IV SCH (07:00)
[2021-05-20] MEDS: PANTOPRAZOLE 40 MG TABLET.DR PO SCH (07:30)
--- NOTE | 2021-05-20 07:31 | NUR ---
RN NOTE NO SIGNIFICANT CHANGES DURING SHIFT. PATIENT AOX4. ABLE TO MAKE NEEDS KNOWN. DRY COUGHING NOTED. COMPLAINTS OF DIFFICULTY BREATHING. PATIENT REFUSED TO HAVE SPUTUM COLLECTED, STATES, "I DONT HAVE ANY". NO BM during shift. ALL DUE MEDICATIONS ADMINISTERED. ALL NEEDS ATTENDED. CALL LIGHT WITHIN REACH. ENDORSED ACCORDINGLY TO NEXT SHIFT.
[2021-05-20 07:42] LABS: ALBUMIN 2.2 g/dL (3.4-5.0); BILIRUBIN,DIRECT 0.1 mg/dL (0.0-0.2); BILIRUBIN,TOTAL 0.2 mg/dL (0.2-1.0); CALCIUM, SERUM 8.4 mg/dL (8.5-10.1); CREATININE 0.9 mg/dL (0.6-1.3); PHOSPHORUS 3.8 mg/dL (2.5-4.9); POTASSIUM 3.9 mmol/L (3.5-5.1)
[2021-05-20] MEDS: GUAIFENESIN LA 600 MG TABLET.SA PO SCH (09:00)
[2021-05-20] MEDS: OLANZAPINE 5 MG TABLET PO SCH (09:00)
[2021-05-20] MEDS: ASPIRIN 81 MG TAB.CHEW PO SCH (09:00)
[2021-05-20] MEDS: FERROUS SULFATE (325 MG) 325 MG/TAB TABLET PO SCH (09:00)
--- NOTE | 2021-05-20 09:30 | NUR ---
PATIENT NOT IN ROOM I ENTERED ROOM TO ADMINISTER ROUTINE MEDICATIONS BUT PATIENT WAS NOT IN ROOM OR BATHROOM.
--- NOTE | 2021-05-20 10:00 | NUR ---
PATIENT NOT IN ROOM. REPORTED TO WINDOWS SERVER ADMINISTRATOR
--- NOTE | 2021-05-20 11:00 | NUR ---
I.D. NOTIFIED. OF [facility] WHO WILL NOTIFY PUBLIC [facility]
[2021-05-20] MEDS ORDERED: METOPROLOL TARTRATE 25 MG TABLET PO SCH (13:00)
[2021-05-20 13:06] LABS: *SPE A/G RATIO 0.7 (0.7-1.7); *SPE ALPHA-1-GLOBULIN 0.4 g/dL (0.0-0.4); *SPE BETA GLOBULIN 0.9 g/dL (0.7-1.3); *SPE M-SPIKE Not Observed g/dL (Not Observed)
--- NOTE | 2021-05-20 13:54 | NUR ---
PT ELOPED AGAINST MEDICAL ADVICE. NO IV PRESENT. NOTIFIED. I.D. NOTIFIED WHO WILL NOTIFY THE DEPARTMENT OF [facility].
--- NOTE | 2021-05-20 15:44 | NUR ---
PT RECEIVED RESTING COMFORTABLY IN BED. NO S/S OR C/O PAIN OR DISTRESS NOTED. SIDE RAILS UP X2, CALL LIGHT LEFT WITHIN REACH. WILL CONTINUE PLAN OF CARE.
== END 2021-05-20 09:00 | disposition home or self-care (01) | DRG 812 ==
LOC: ER 03:13 → TELE1 06:34 → MEDSG1 05-17 08:52
PROVIDERS: ADMIT Nurse Practitioner Acute Care; ATTEND Nurse Practitioner Acute Care
DX: T39.1X1A Poisoning by 4-Aminophenol derivatives, accidental (unintentional), initial encounter (principal); A41.9 Sepsis, unspecified organism; E44.0 Moderate protein-calorie malnutrition; J18.9 Pneumonia, unspecified organism; E87.1 Hypo-osmolality and hyponatremia; E88.09 Other disorders of plasma-protein metabolism, not elsewhere classified; K56.7 Ileus, unspecified; K86.89 Other specified diseases of pancreas; Z59.00 Homelessness unspecified; F19.10 Other psychoactive substance abuse, uncomplicated; E87.6 Hypokalemia; J98.11 Atelectasis; D75.839 Thrombocytosis, unspecified; F17.210 Nicotine dependence, cigarettes, uncomplicated; Z91.19 Patient's noncompliance with other medical treatment and regimen; D64.9 Anemia, unspecified; I44.4 Left anterior fascicular block; Z20.822 Contact with and (suspected) exposure to COVID-19; R74.01 Elevation of levels of liver transaminase levels; Z68.22 Body mass index [BMI] 22.0-22.9, adult; R91.8 Other nonspecific abnormal finding of lung field; I51.89 Other ill-defined heart diseases; Y92.89 Other specified places as the place of occurrence of the external cause
CPT/HCPCS: 36415; 71045-TC; 80048-TC; 80053-TC; 80061-TC; 80076-TC; 82378; 82550-TC; 82728-TC; 82784; 83010; 83540-TC; 83605-TC; 83615-TC; 83690-TC; 83735-TC; 83880; 84100-TC; 84155; 84165; 84484-TC; 85025-TC; 85378-TC; 85385-TC; 85610-TC; 85730-TC; 86140-TC; 86301; 86334; 86480; 86803; 87040-TC; 87070-TC; 87116; 87206; 87806; 87899; 93307-TC; 94640-TC; C9803; G0378; J0132; J0456; J0696; J1650; J2405; J7050; J7060; J7070; Q9967; U0003